=== PATIENT | female | born 1965 | race Caucasian/White ===

== ENCOUNTER 2019-02-16 10:45 | Emergency (ER) | payer BC ==
--- OUTSIDE RECORDS SUMMARY | 2019-02-16 10:49 | XMS REPORT | Summary of Care ---
:1965 Author Organization [facility]rology [place] Address [address] [place] [address]- phone Encounter HQ Encntr_alias(FIN) [id number] Date(s): 02/11/19 - 02/11/19 [facility] [address] [place] [address]- [phone] Attending Physician: Don Coyle MD Vital Signs No data available for this section Problem List Condition Effective Dates Status Health Status Informant Cervical radiculopathy(Confirmed) Active Pineal gland cyst(Confirmed) Active Fatigue(Confirmed) Active Heart murmur(Confirmed) Active Hypertension(Confirmed) Active Migraines(Confirmed) Active Morbid obesity(Confirmed) Active Weight gain(Confirmed) Active Allergies, Adverse Reactions, Alerts No Known Medication Allergies Medications No data available for this section Results No data available for this section Immunizations No data available for this section Procedures No data available for this section Social History Social History Type Response Smoking Status Current some day smoker; Type: Cigarettes; Exposure to Tobacco Smoke Unable to obtain; Cigarette Smoking Last 365 Days Yes; Reg Smoking Cessation Counseling No entered on: 05/15/18 Assessment and Plan No data available for this section
--- OUTSIDE RECORDS SUMMARY | 2019-02-16 10:49 | XMS REPORT | Summary of Care ---
:1965 Author Organization [facility] Neurology [place] Address [address] [place] [address]- phone Encounter HQ Encntr_alias(FIN) [id number] Date(s): 06/26/18 - 06/27/18 [facility] [address] [place] [address]- [phone] Vital Signs No data available for this [...]
--- OUTSIDE RECORDS SUMMARY | 2019-02-16 10:49 | XMS REPORT | Summary of Care ---
:1965 Author Organization [facility] Neurology [place] Address [address] [place] [address]- phone Encounter HQ Encntr_alias(FIN) [id number] Date(s): 05/22/18 - 05/23/18 [facility] [address], [place] [id number]- [phone] Vital Signs No data available for this section Problem List Condition Effective Dates Status Health Status Informant Cervical radiculopathy(Confirmed) Active Pineal gland cyst(Confirmed) Active Fatigue(Confirmed) Active Heart murmur(Confirmed) Active Hypertension(Confirmed) Active Migraines(Confirmed) Active Morbid obesity(Confirmed) Active Weight gain(Confirmed) Active Allergies, Adverse Reactions, Alerts Substance Reaction Severity Status NKDA Active Medications indomethacin 25 mg oral capsule See Instructions, 1 cap PO Daily prn headache, # 30 cap, 2 Refill(s), Pharmacy: [id number] Start Date: 05/22/18 Status: Ordered Results No data available for this section [...]
--- NOTE | 2019-02-16 12:02 | RAD REPORT ---
EXAM DESCRIPTION: RAD - Ankle Left 3 View - 02/16/2019 11:50 am CLINICAL HISTORY: Trip and fall, left ankle pain COMPARISON: None. FINDINGS: No fracture, dislocation or periosteal reaction. No joint effusion seen. No joint space na rrowing. Punctate bone density between the medial malleolus and dome of the talus is believed to be d egenerative in etiology rather than bone avulsion. No significant soft tissue abnormality seen. Patie nt has a small plantar spur. IMPRESSION: Minimal degenerative change and small plantar spur. No fracture or acute left ankle find ing.
--- NOTE | 2019-02-16 12:22 | EDPHYS ---
Physician Documentation [facility] Name: Darya Canela Age: 53 yrs Sex: Female : 1965 Arrival Date: 02/16/2019 Time: 10:48 Bed 12 Private MD: ED Physician Abner Badillo HPI: 02/16 12:20 This 53 yrs old Female presents to ER via Wheelchair with complaints of Fall kb Injury, Ankle Injury, Leg Pain. 12:20 The patient presents with pain, swelling, tenderness. The complaints affect the left kb foot. Context: The problem was sustained at home, resulted from the patient tripping, walker, Mechanism of Injury: Inversion the patient can partially bear weight, can ambulate using crutches. Onset: The symptoms/episode began/occurred yesterday. Modifying factors: The symptoms are alleviated by nothing, the symptoms are aggravated by weight bearing. Associated signs and symptoms: Pertinent positives: swelling, Pertinent negatives: calf tenderness, fever, nausea, numbness, rash, tingling, vomiting, warmth, weakness. Severity of symptoms: At their worst the symptoms were moderate, in the emergency department the symptoms are unchanged. The patient has not experienced similar symptoms in the past. The patient has not recently seen a physician. 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 - Social history:: Smoking status: Patient uses tobacco products, denies chronic smoking, but will smoke occasionally. - Ebola Screening: : Patient denies travel to an Ebola-affected area in the 21 days before illness onset. ROS: 12:18 Constitutional: Negative for fever, chills, and weight loss, Cardiovascular: Negative kb for chest pain, palpitations, and edema, Respiratory: Negative for shortness of breath, cough, wheezing, and pleuritic chest pain, Abdomen/GI: Negative for abdominal pain, nausea, vomiting, diarrhea, and constipation, Skin: Negative for injury, rash, and discoloration, Neuro: Negative for headache, weakness, numbness, tingling, and seizure. 12:18 MS/extremity: Positive for pain, swelling, tenderness, of the left foot. Exam: 12:18 Constitutional: This is a well developed, well nourished patient who is awake, alert, kb and in no acute distress. Head/Face: Normocephalic, atraumatic. Neck: Trachea midline, no thyromegaly or masses palpated, and no cervical lymphadenopathy. Supple, full range of motion without nuchal rigidity, or vertebral point tenderness. No Meningismus. Chest/axilla: Normal chest wall appearance and motion. Nontender with no deformity. No lesions are appreciated. Cardiovascular: Regular rate and rhythm with a normal S1 and S2. No gallops, murmurs, or rubs. Normal PMI, no JVD. No pulse deficits. Respiratory: Lungs have equal breath sounds bilaterally, clear to auscultation and percussion. No rales, rhonchi or wheezes noted. No increased work of breathing, no retractions or nasal flaring. Abdomen/GI: Soft, non-tender, with normal bowel sounds. No distension or tympany. No guarding or rebound. No evidence of tenderness throughout. Skin: Warm, dry with normal turgor. Normal color with no rashes, no lesions, and no evidence of cellulitis. Neuro: Awake and alert, GCS 15, oriented to person, place, time, and situation. Cranial nerves II-XII grossly intact. Motor strength 5/5 in all extremities. Sensory grossly intact. Cerebellar exam normal. Normal gait. 12:18 Musculoskeletal/extremity: Extremities: grossly normal except: noted in the left foot: pain, swelling, tenderness, ROM: intact in all extremities, Circulation is intact in all extremities. Sensation intact. Weight bearing: can bear weight with assistance only, uses crutches. Vital Signs: 10:53 BP 120 / 77; Pulse 66; Resp 18; Temp 97.2; Pulse Ox 100% on R/A; Weight 89.81 kg (R); aj1 Height 5 ft. 4 in. (162.56 cm) (R); Pain 7/10; 10:53 Body Mass Index 33.99 (89.81 kg, 162.56 cm) aj1 MDM: 11:48 Patient medically screened. kb 12:20 Data reviewed: vital signs, nurses notes. Data interpreted: Pulse oximetry: on room air kb is 100 %. Interpretation: normal. Counseling: I had a detailed discussion with the patient and/or guardian regarding: the historical points, exam findings, and any diagnostic results supporting the discharge/admit diagnosis, radiology results, the need for outpatient follow up, a family practitioner, a orthopedic surgeon, to return to the emergency department if symptoms worsen or persist or if there are any questions or concerns that arise at home. 02/16 10:55 Order name: XRAY Ankle LEFT 3 view; Complete Time: 12:11 aj1 02/16 12:21 Order name: Andreas Wrap; Complete Time: 12:52 kb 02/16 12:53 Order name: Post-op shoe; Complete Time: 13:13 kb Administered Medications: 12:36 Drug: TORadol 60 mg Route: IM; Site: left gluteus; aj 12:52 Follow up: Response: No adverse reaction aj Disposition: 14:34 Co-signature as Attending Physician, Abner Badillo MD. rn Disposition: 02/16/19 12:21 Discharged to Home. Impression: Unspecified sprain of left foot. - Condition is Stable. - Discharge Instructions: Foot Sprain. - Prescriptions for Diclofenac Sodium 75 mg Oral Tablet, Delayed Release (E.C.) - take 1 tablet by ORAL route 2 times per day As needed; 30 tablet. Tramadol 50 mg Oral Tablet - take 1 tablet by ORAL route every 8 hours as needed; 12 tablet. - Medication Reconciliation Form, Thank You Letter, Antibiotic Education, Prescription Opioid Use form. - Follow up: Emergency Department; When: As needed; Reason: Worsening of condition. Follow up: Private Physician; When: 2 - 3 days; Reason: Recheck today's complaints, Continuance of care, Re-evaluation by your physician. Signatures: Dispatcher [employer] Noemi Landeros, [facility] PATHOLOGY LABORATORY AIDE-Tierney Campbell RN RN aj1 Abner Badillo MD MD rn Smirch, Shelby, RN RN ss Corrections: (The following items were deleted from the chart) 12:22 12:20 The complaints affect the right foot, kb kb 13:21 12:21 02/16/2019 12:21 Discharged to Home. Impression: Unspecified sprain of left foot. ss Condition is Stable. Forms are Medication Reconciliation Form, Thank You Letter, Antibiotic Education, Prescription Opioid Use. Follow up: Emergency Department; When: As needed; Reason: Worsening of condition. Follow up: Private Physician; When: 2 - 3 days; Reason: Recheck today's complaints, Continuance of care, Re-evaluation by your physician. kb
--- NOTE | 2019-02-16 12:22 | ER ---
Nurse's Notes [facility] Name: Darya Canela Age: 53 yrs Sex: Female : 1965 Arrival Date: 02/16/2019 Time: 10:48 Bed 12 Private MD: Diagnosis: Unspecified sprain of left foot Presentation: 02/16 10:51 Presenting complaint: Patient states: "I tripped over my moms walker yesterday and I aj1 inverted my ankle and my whole left foot on the outside, my whole ankle and up to my mid mcleod is aching. I can't stand on it.". Transition of care: patient was not received from another setting of care. Onset of symptoms was February 15, 2019. Risk Assessment: Do you want to hurt yourself or someone else? Patient reports no desire to harm self or others. Initial Sepsis Screen: Does the patient meet any 2 criteria? No. Patient's initial sepsis screen is negative. Does the patient have a suspected source of infection? No. Patient's initial sepsis screen is negative. Care prior to arrival: None. 10:51 Method Of Arrival: Wheelchair aj1 10:51 Acuity: JU 4 aj1 Triage Assessment: 10:53 General: Appears in no apparent distress. uncomfortable, Behavior is calm, cooperative, aj1 appropriate for age. Pain: Complains of pain in left ankle, left foot Pain currently is 7 out of 10 on a pain scale. Neuro: Level of Consciousness is awake, alert, obeys commands, Oriented to person, place, time, situation. Cardiovascular: Patient's skin is warm and dry. Respiratory: Airway is patent Respiratory effort is even, unlabored, Respiratory pattern is regular, symmetrical. 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 - Social history:: Smoking status: Patient uses tobacco products, denies chronic smoking, but will smoke occasionally. - Ebola Screening: : Patient denies travel to an Ebola-affected area in the 21 days before illness onset. Screenin:46 Abuse screen: Denies threats or abuse. Denies injuries from another. Nutritional ss screening: No deficits noted. Tuberculosis screening: Never had TB. Fall Risk None identified. Assessment: 11:46 General: Appears in no apparent distress. comfortable, Behavior is calm, cooperative, ss Denies fever, feeling ill, fatigue, chills. Pain: Complains of pain in L foot/ankle Pain currently is 7 out of 10 on a pain scale. Quality of pain is described as aching, tender, throbbing, Pain began "yesterday evening." Is continuous. Neuro: Level of Consciousness is awake, alert, obeys commands, Oriented to person, place, time, situation. Cardiovascular: Capillary refill < 3 seconds is brisk in bilateral fingers Pulses are palpable in right posterior tibial artery and left posterior tibial artery. Respiratory: Airway is patent Respiratory effort is even, unlabored, Respiratory pattern is regular, symmetrical. GI: No signs and/or symptoms were reported involving the gastrointestinal system. EENT: Nares are clear Oral mucosa is moist. Throat is clear. Derm: Skin is intact, is healthy with good turgor, Skin is dry, Skin is pink, warm \\T\\ dry. normal. Musculoskeletal: Swelling present in left foot/ L ankle. 12:37 Reassessment: Patient states that she would like a walking boot instead of ANDREAS wrap, aj1 because she cant use crutches at home. Notified Monika Burris NP. Patient was offered an air splint per provider orders, which she was happy with, but states that she would like to also be ANDREAS wrapped for her foot. Applied ANDREAS wrap and air splint to patient's ankle. 12:51 Reassessment: Patient states that she thinks something was missed, because her ankle aj1 hurts so much. States that she would like to speak to the provider again. Notified Monika Burris NP. Vital Signs: 10:53 BP 120 / 77; Pulse 66; Resp 18; Temp 97.2; Pulse Ox 100% on R/A; Weight 89.81 kg (R); aj1 Height 5 ft. 4 in. (162.56 cm) (R); Pain 7/10; 10:53 Body Mass Index 33.99 (89.81 kg, 162.56 cm) aj1 ED Course: 10:48 Patient arrived in ED. mr 10:52 Triage completed. aj1 10:53 Arm band placed on Patient placed in waiting room. aj1 10:58 [facility]C [facility] kb 10:58 Abner Badillo MD is Attending Physician. kb 11:46 Patient has correct armband on for positive identification. Bed in low position. Call ss light in reach. 11:49 XRAY Ankle LEFT 3 view In Process Unspecified. EDMS 12:37 Tosha Khan, RN is Primary Nurse. ss 13:14 No provider procedures requiring assistance completed. Patient did not have IV access ss during this emergency room visit. Crutch training done. Andreas wrap to left ankle Air stirrup applied to left ankle. Administered Medications: 12:36 Drug: TORadol 60 mg Route: IM; Site: left gluteus; aj1 12:52 Follow up: Response: No adverse reaction aj1 Outcome: 12:21 Discharge ordered by MD. kb 13:14 Discharged to home via wheelchair. ss 13:14 Condition: good 13:14 Discharge instructions given to patient, Instructed on discharge instructions, follow up and referral plans. medication usage, Demonstrated understanding of instructions, follow-up care, medications. 13:15 Prescriptions given X 2. ss 13:21 Patient left the ED. ss Signatures: Dispatcher [employer] EDOH Noemi Burris FNP-C FNP-Tierney Campbell RN RN aj1 Kesha Tijerina mr Tosha Khan, OBED RN ss
[2019-02-16] MEDS ORDERED: KETOROLAC 30 MG/ML INJ ONE (12:46)
== END 2019-02-16 13:21 | disposition home or self-care (01) ==
LOC: ER 10:45
DX: S93.602A Unspecified sprain of left foot, initial encounter (principal); W01.0XXA Fall on same level from slipping, tripping and stumbling without subsequent striking against object, initial encounter; Y93.01 Activity, walking, marching and hiking; Y92.009 Unspecified place in unspecified non-institutional (private) residence as the place of occurrence of the external cause; K21.9 Gastro-esophageal reflux disease without esophagitis; F41.9 Anxiety disorder, unspecified; Z72.0 Tobacco use
CPT/HCPCS: 96372; 99284